=== PATIENT | male | born 1980 | race African-American/Black ===

== ENCOUNTER 2019-05-10 07:45 | Emergency (ER) | payer OTHER ==
[~2019-05-10] VITALS: Ht 188 cm; Wt 127.0 kg
[~2019-05-10 07:45] MED LIST: NAPROXEN500 M1 ORAL; ROBAXIN-750750 MG PO
[2019-05-10 08:00] VITALS: BP 142/89
--- NOTE | 2019-05-10 08:00 | NUR ---
ED Nurse Note: Patient came to ED from home c/o callous on the bottom of right foodtthat is 10/10 pain, feels tight and painful to walk on. Patient is requesting to see if the doctor can get rid of it. Patient is resting in bed, no s/s of acute distress.
[2019-05-10 08:50] VITALS: BP 142/89
--- NOTE | 2019-05-10 08:50 | NUR ---
ED Nurse Note: Dr. Thomas at bedside.
--- NOTE | 2019-05-10 08:50 | NUR ---
ED Nurse Note: Patient left without signing DC papers.
--- NOTE | 2019-05-10 14:46 | Emergency Room Report ---
History of Present Illness General Chief Complaint: Skin Rash/Abscess Source: Patient Present Illness HPI Patient presents with complaints of a callus on the bottom of his foot Reports that last time he was seen the area was lanced Denies any fevers or chills denies any trauma denies any diabetes denies any ankle pain Patient has not seen outpatient resources for this Allergies: Coded Allergies: No Known Allergies (Unverified , 04/20/19) Patient History Past Medical History: see triage record Reviewed Nursing Documentation: PMH: Agreed; PSxH: Agreed Nursing Documentation-PMH Past Medical History: No Stated History Review of Systems All Other Systems: negative except mentioned in HPI Physical Exam Vital Signs Date Time Temp Pulse Resp B/P (MAP) Pulse Ox O2 Delivery O2 Flow Rate FiO2 05/10/19 07:47 97.9 52 16 142/89 (106) 98 Room Air Sp02 EP Interpretation: reviewed, normal General Appearance: well appearing, no apparent distress Head: normocephalic, atraumatic Eyes: bilateral eye PERRL, bilateral eye EOMI ENT: normal pharynx Respiratory: no respiratory distress, no retraction, no accessory muscle use Musculoskeletal: normal inspection Neurologic: alert, oriented x3 Skin: other - Small callus palpable at the midpoint of the foot no surrounding erythema no obvious fluctuance Lymphatic: no adenopathy Medical Decision Making Diagnostic Impression: Primary Impression: foot calus ER Course Given the findings on exam it was discussed with the patient to have close outpatient follow-up I did not feel that lancing the area in the emergency room was appropriate given the findings and examination Patient also given outpatient and [id number] resources also further podiatry specialty follow-up With these discussions the patient becomes fairly irate begins to curse at me and says that 'you are a f'ing ass----'. 'wasting my time' Patient left the emergency room without signing his papers or obtaining the outpatient resources Last Vital Signs Date Time Temp Pulse Resp B/P (MAP) Pulse Ox O2 Delivery O2 Flow Rate FiO2 05/10/19 08:50 97.9 78 16 142/89 98 Room Air Status: unchanged Disposition: HOME, SELF-CARE Condition: Stable Referrals: [facility]ERR[facility] (PCP) LEORA SCHERER M.D. [facility] Portillo [facility]. [facility] Patient Instructions: Bunion (Hallux Valgus) Additional Instructions: Patient is provided with the discharge instructions notified to follow up with primary doctor in the next 2-3 days otherwise return to the er with any worsening symptoms. Please note that this report is being documented using [employer] technology. This can lead to erroneous entry secondary to incorrect interpretation by the dictating instrument. Daryl Thomas DO May 10, 2019 14:46
== END 2019-05-10 08:50 | disposition home or self-care (01) ==
LOC: EMR 08:10
DX: L84 Corns and callosities (principal)
CPT/HCPCS: 99282

== ENCOUNTER 2020-01-20 15:54 | Emergency (ER) | payer OTHER ==
[~2020-01-20] VITALS: Ht 188 cm; Wt 104.3 kg
[2020-01-20] MEDS ORDERED: Naloxone 1mg/ml 2ml IVP ONE (16:00)
--- NOTE | 2020-01-20 16:04 | Emergency Room Report ---
History of Present Illness General Chief Complaint: Altered Level of Consciousness Source: Patient, EMS Present Illness HPI 39-year-old -[place] male with history of polysubstance abuse presents by ambulance for being found down. Initially altered according to EMS, however this resolved after administration of Narcan in the field. Patient is now AOx4 He admits to taking "sherms" this morning but denies any other coingestions. He denies any pain at this time. The patient's symptoms were gradual onset, severity was moderate, duration since unknown amount of time. Quality: Altered Past medical history: Denies Past surgical history: Denies Smoking: ++ Alcohol use: Denies Drug use: ++Meth, PCP, marijuana Review of systems: CONST: No fevers or chills, No night sweats PULMONARY: No productive cough, No shortness of breath CARDIAC: No chest pain, No palpitations GI: No vomiting, No diarrhea , No melena_or_BRBPR : No dysuria, No hematuria, No discharge NEURO: No new_focal_weakness_or_numbness, No confusion, No vision changes 14 point Review of Systems is otherwise negative except per HPI Physical Exam: GENERAL: Awake_alert_ nontoxic, no acute distress Spo2 96% on RA -normal EYES: Extraocular muscles are intact. Conjunctivae clear. Lids without swelling ENT: External nose and ear normal_in_appearance. Oropharynx clear. Head_atraumatic, Moist_oral_mucosa NECK: No JVD. No meningismus. No thyromegaly. Supple. Trachea midline. No nuchal rigidity RESP: Normal respiratory effort. Symmetric rise. No stridor. Clear_to_ausculta tion_No_rales_No_wheezes CARDIAC: Tachycardic and regular rhytm. No_significant pedal edema. ABDOMEN: Soft. Nondistended. Nontender_No_rebound_or_guarding. MSK: Normal muscle tone, without rigidity. Extremities without asymmetric deformity or swelling. SKIN: Warm and dry. No visible cyanosis or pallor NEUROLOGIC: Alert, oriented x3. Motor_and_sensation_grossly_intact. No truncal ataxia. Gait_normal Psych: Normal mood and affect, normal judgment and insight - COORDINATION OF CARE Case was discussed with: Patient Any labs and imaging that were ordered were interpreted as part of the medical decision making: Medical Decision Making/Plan: Differential diagnosis includes psychosis, delusions, paranoid schizophrenia, drug abuse, drug intoxication, drug overdose, among others. The patient denies any suicide attempt, overdose, or ingestion. Initial vitals are notable for low-grade tachycardia. They exhibit no signs of any toxic syndrome or drug / alcohol withdrawal. Labs were ordered for evaluation, and results are reassuring with no evidence of occult overdose, or severe metabolic derangement. Mild dehydration. CBC is hemoconcentrated. The patient was observed for a period of time in the ED with serial neurologic exams. CT head is negative for intracranial hemorrhage. Patient pulled his IV out and eloped out of the ER thus preventing any subsequen t re-evaluation. He was unreachable by phone. 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 Ambulatory. Rhythm Strip Diag. Results Rhythm Strip Time: 15:50 EP Interpretation: yes Rate: 120 Rhythm: no PVC's, no ectopy CT/MRI/US Diagnostic Results CT/MRI/US Diagnostic Results : Impression CT head noncontrast Indication: Altered mental status Impression: No acute intracranial hemorrhage or edema. No mass-effect or midline shift. Findings: No acute disease Last Vital Signs Date Time Temp Pulse Resp B/P (MAP) Pulse Ox O2 Delivery O2 Flow Rate FiO2 01/20/20 15:50 98.8 104 16 188/108 (134) 96 Room Air Disposition: ELOPED Admit Decision Time: 16:54 Condition: Stable Marie Olvera D.O. Jan 20, 2020 16:04
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
[2020-01-20 16:19] VITALS: BP 172/99
[2020-01-20 16:28] LABS: BASOPHILS % (AUTO) 0.9 % (0.0-2.0); EOSINOPHILS % (AUTO) 0.7 % (0.0-3.0); HEMATOCRIT 42.8 % (42.0-52.0); HEMOGLOBIN 14.1 G/DL (14.2-18.0); LYMPHOCYTES % (AUTO) 9.5 % (20.0-45.0); MEAN CORPUSCULAR VOLUME 95 FL (80-99); MONOCYTES % (AUTO) 5.1 % (1.0-10.0); NEUTROPHILS % (AUTO) 83.7 % (45.0-75.0); PLATELET COUNT 243 K/UL (150-450); RED BLOOD COUNT 4.51 M/UL (4.70-6.10); RED CELL DISTRIBUTION WIDTH 12.8 % (11.6-14.8); WHITE BLOOD COUNT 16.2 K/UL (4.8-10.8)
[2020-01-20 16:43] LABS: ANION GAP 9 mmol/L (5-15); BLOOD UREA NITROGEN 23 mg/dL (7-18); CARBON DIOXIDE 29 MMOL/L (21-32); CHLORIDE 109 MMOL/L (98-107); CREATININE 1.3 MG/DL (0.55-1.30); POTASSIUM 3.8 MMOL/L (3.5-5.1); SODIUM 147 MMOL/L (136-145)
--- NOTE | 2020-01-20 16:49 | Diagnostic Imaging Report ---
Indications: Altered mental status Technique: Spiral acquisitions obtained through the brain. Angled axial and coronal 5 x 5 mm slices were reconstructed. Total dose length product 1045 mGycm. CTDI vol(s) 53 mGy. Dose reduction achieved using automated exposure control Comparison: None. Findings: No acute intracranial hemorrhage or edema. No mass effect nor midline shift. Patent cavum septum lucidum. Normal kennedy-white differentiation. Mastoids are clear. Calvarium is intact. Impression: Negative The CT scanner at [facility] is accredited by the [employer] and the scans are performed using protocols designed to limit radiation exposure to as low as reasonably achievable to attain images of sufficient resolution adequate for diagnostic evaluation.
--- NOTE | 2020-01-20 16:54 | NUR ---
ED Nurse Note: Went into patients room. IV found in patients room, patient is gone. Pt eloped without talking to ERMD about risks, pt is a&0x4, ambulatory. No VSS taken, patient belongings are not in room either. ERMD and CN notified.
[2020-01-20 16:55] LABS: ALANINE AMINOTRANSFERASE 36 U/L (12-78); ALBUMIN/GLOBULIN RATIO 1.5 (1.0-2.7); ALKALINE PHOSPHATASE 43 U/L (46-116); ASPARTATE AMINO TRANSFERASE 32 U/L (15-37); BILIRUBIN,TOTAL 0.3 MG/DL (0.2-1.0); CREATINE KINASE 890 U/L (26-308)
== END 2020-01-20 16:46 | disposition left against medical advice (07) ==
LOC: EDBD 15:54 → EMR 16:05
DX: R41.82 Altered mental status, unspecified (principal); F19.10 Other psychoactive substance abuse, uncomplicated; E86.0 Dehydration
CPT/HCPCS: 36415; 70450; 80053; 82140; 82550; 84443; 84484; 85025; 96361; 96374; G0480; G0481; J2310; J7030; Z7502; 99284

== ENCOUNTER 2020-03-10 17:57 | Emergency (ER) | payer BC, OTHER ==
[~2020-03-10] VITALS: Ht 188 cm; Wt 136.1 kg
[2020-03-10 18:26] VITALS: BP 142/84
[2020-03-10] MEDS ORDERED: Omnipaque-300 100ml vial INJ ONE (18:30)
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
[2020-03-10] MEDS: Morphine Sulfate 4mg/ml Inj (IV USE ONLY) IVP ONE (18:50)
[2020-03-10 19:14] LABS: BASOPHILS % (AUTO) 1.5 % (0.0-2.0); EOSINOPHILS % (AUTO) 1.5 % (0.0-3.0); LYMPHOCYTES % (AUTO) 12.1 % (20.0-45.0); MEAN CORPUSCULAR VOLUME 92 FL (80-99); MONOCYTES % (AUTO) 4.8 % (1.0-10.0); NEUTROPHILS % (AUTO) 80.1 % (45.0-75.0); PLATELET COUNT 279 K/UL (150-450); RED BLOOD COUNT 4.36 M/UL (4.70-6.10); WHITE BLOOD COUNT 13.6 K/UL (4.8-10.8)
[2020-03-10 19:18] LABS: ANION GAP 6 mmol/L (5-15); BLOOD UREA NITROGEN 27 mg/dL (7-18); CALCIUM 8.8 MG/DL (8.5-10.1); CARBON DIOXIDE 30 MMOL/L (21-32); CHLORIDE 103 MMOL/L (98-107); CREATININE 1.3 MG/DL (0.55-1.30); POTASSIUM 4.4 MMOL/L (3.5-5.1); SODIUM 139 MMOL/L (136-145)
--- NOTE | 2020-03-10 19:20 | NUR ---
ED Nurse Note: report given to daryl yuan for continuity of care.
[2020-03-10 19:23] LABS: ALANINE AMINOTRANSFERASE 66 U/L (12-78); ALBUMIN 3.9 G/DL (3.4-5.0); ALBUMIN/GLOBULIN RATIO 1.1 (1.0-2.7); ALKALINE PHOSPHATASE 77 U/L (46-116); ASPARTATE AMINO TRANSFERASE 45 U/L (15-37); BILIRUBIN,TOTAL 0.3 MG/DL (0.2-1.0)
--- NOTE | 2020-03-10 19:30 | NUR ---
AMA: SEE AMA FORM. Patient insists on leaving. explained risk and benefits x3 with ermd; patient verbalizes understanding. patient still refuses care. pt is aox4, on room air, with stable vital signs. pt id band and iv site removed without complications. pt is able to ambulate with steady gait. patient left ama. pt took all belongings.
[2020-03-10 19:32] VITALS: BP 137/79
== END 2020-03-10 19:30 | disposition left against medical advice (07) ==
LOC: EMR 18:58
DX: S39.91XA Unspecified injury of abdomen, initial encounter (principal); F15.90 Other stimulant use, unspecified, uncomplicated; F16.90 Hallucinogen use, unspecified, uncomplicated; V00.148A Other scooter (nonmotorized) accident, initial encounter; Y93.I9 Activity, other involving external motion; Y92.9 Unspecified place or not applicable; Z53.29 Procedure and treatment not carried out because of patient's decision for other reasons
CPT/HCPCS: 36415; 80053; 85025; 96374; 99284; J2270